=== PATIENT | male | born 1980 | race Caucasian/White ===

== ENCOUNTER 2019-10-19 17:47 | Emergency (ER) | payer OTHER, SELFPAY ==
--- NOTE | ~2019-10-19 | XR_ITS ---
XR foot RT min 3V 10/19/2019 19:10 INDICATION: Right foot pain. No known injury. PROCEDURE: 4 views right foot COMPARISON: 01/19/2007 FINDINGS: Fracture, dislocation or subluxation is not identified. Lisfranc joint intact. There is mil d osteoarthritis of the first MTP joint. There is hallux valgus. The soft tissues appear within lars l limits. No foreign bodies are identified. IMPRESSION: 1: NO ACUTE BONE OR JOINT ABNORMALITY IDENTIFIED. Reviewed, dictated and finalized at location A. [employer]
[2019-10-19 18:12] VITALS: BP 172/95; PULSE 82; RESP 20; TEMP 36.9; O2SAT 87
[2019-10-19] MEDS: KETOROLAC (*BKC) 60 MG/2 ML VIAL IM (19:13)
--- NOTE | 2019-10-19 19:55 | ED.GENADULT ---
HPI - General Adult General Chief complaint: Extremity Problem,Nontraumatic Stated complaint: r foot pain Source: patient Mode of arrival: ambulatory Limitations: no limitations History of Present Illness HPI narrative: Patient presents with a right foot foot pain on the plantar surface lateral without tenderness with palpation with no known injury there is no redness no swelling, with no leg swelling. Has tried [id number] medication with minimal relief, there is no fever no injury to his right foot. Onset (ago): day(s) Location: right and lower extremity Severity: moderate Severity scale (1-10): 6 Quality: dull and constant Pain Consistency: constant Relieving factors: none Exacerbating factors: movement Associated symptoms: denies other symptoms Related Data Home Medications Medication Instructions Recorded Confirmed glimepiride 2 mg PO DAILY 10/19/19 10/19/19 Allergies Allergy/AdvReac Type Severity Reaction Status Date / Time No Known Allergies Allergy Unverified 06/18/17 11:08 Review of Systems Review of Systems: All systems reviewed & are unremarkable except as noted in HPI and below PMFSH Past Medical History Medical History Diabetes mellitus Social History Social History Gender identity (if verbalized by the patient): Male Exam Const: General: no acute distress and alert Orientation/consciousness: patient oriented x3 HENMT: Head: normal to inspection Eyes: Conjunctivae: conjunctivae normal Pupils: Equal, round and reactive pupils present Neck: Neck: normal visual inspection and no lymphadenopathy Chest: Chest palpation & inspection: normal inspection of the chest Resp: Effort & Inspection: normal respiratory effort GI: GI Palp: Yes Soft to palpation : Testes: Testes normal Skin: General skin exam: normal color Rashes: no rashes Extrem: General: no pedal edema Other: right plantar tenderness with palpation Psych: Mental Status: mental status grossly normal Course Vital Signs Vital signs: Vital Signs Temperature 36.9 C 10/19/19 18:12 Pulse Rate 82 10/19/19 18:12 Respiratory Rate 20 10/19/19 18:12 Blood Pressure 172/95 H 10/19/19 18:12 Pulse Oximetry 87 L 10/19/19 18:12 Temperature 36.9 C 10/19/19 18:12 Pulse Rate 82 10/19/19 18:12 Respiratory Rate 20 10/19/19 18:12 Blood Pressure 172/95 H 10/19/19 18:12 Pulse Oximetry 87 L 10/19/19 18:12 Medical Decision Making Vital Signs Vital Signs: Vital Signs Temperature 36.9 C 10/19/19 18:12 Pulse Rate 82 10/19/19 18:12 Respiratory Rate 20 10/19/19 18:12 Blood Pressure 172/95 H 10/19/19 18:12 Pulse Oximetry 87 L 10/19/19 18:12 Temperature 36.9 C 10/19/19 18:12 Pulse Rate 82 10/19/19 18:12 Respiratory Rate 20 10/19/19 18:12 Blood Pressure 172/95 H 10/19/19 18:12 Pulse Oximetry 87 L 10/19/19 18:12 Critical Care Time Critical Care Time Critical Care Time: No Discharge Plan Discharge Clinical Impression: Plantar fasciitis of right foot Patient Disposition: Home, Self-Care Condition: Stable Instructions: Plantar Fasciitis (ED), Antibiotic Form Additional Instructions: take medicine as prescribed and follow-up with primary care physician for further evaluation and treatment. Prescriptions: New naproxen 500 mg tablet 500 mg PO BID Qty: 14 RF: 0 No Action glimepiride 2 mg tablet 2 mg PO DAILY RF: 0 Follow-up/Referrals: UNKNOWN,DOCTOR [Primary Care Provider] -
[2019-10-19 20:13] VITALS: BP 149/96; PULSE 76; RESP 20; O2SAT 97
== END 2019-10-19 20:13 | disposition home or self-care (01) ==
PROVIDERS: Emergency Provider Emergency Medicine
DX: M72.2 Plantar fascial fibromatosis (principal)
CPT/HCPCS: 73630; 96372; 99283; J1885

== ENCOUNTER 2019-11-17 01:34 | Emergency (ER) | payer SELFPAY ==
--- NOTE | ~2019-11-17 | XR_ITS ---
EXAMINATION: XR ankle LT 2V EXAM DATE: 11/17/2019 02:09 INDICATION: No known recent injury provided at this time. Pain of the left ankle laterally. TECHNIQUE: Frontal and lateral projections of the left ankle. There is no prior study for compariso n. FINDINGS: There are no acute left ankle fractures or dislocations identified. There is no subcutaneo us gas. The soft tissue is unremarkable. There are no radiopaque foreign bodies. Small spurring a nterior aspect of distal tibia. IMPRESSION: No acute osseous findings. Reviewed, dictated and finalized at location A. IMPRESSION: No acute osseous findings.
[2019-11-17 01:35] VITALS: BP 168/95; PULSE 89; RESP 18; TEMP 36.6; O2SAT 97
--- NOTE | 2019-11-17 01:52 | ED.LOWEXIN ---
HPI - Extremity Injury (Lower) General Chief Complaint: Extremity Injury, Lower Stated Complaint: Left Ankle Injury Source: patient Mode of arrival: ambulatory Limitations: no limitations History of Present Illness HPI Narrative: This is a 39-year-old male presents with left ankle pain lateral aspect of his left ankle with some tenderness with palpation has decreased range of motion secondary to pain and swelling, twisted his ankle approximately 2 days ago, has been trying [id number] medication with a moderate relief initially but overnight has become worse and medication not helping as much. complaint: ankle injury Onset (ago): day(s) Injury: Left: ankle Type of Injury: inversion Place: home Severity: moderate Severity scale (1-10): 8 Relieving factors: NSAID and cold therapy Exacerbating factors: movement and palpation Context: walking Associated symptoms: swelling and able to partially bear weight Other symptoms: none Related Data Home Medications Medication Instructions Recorded Confirmed glimepiride 2 mg PO DAILY 10/19/19 11/17/19 Allergies Allergy/AdvReac Type Severity Reaction Status Date / Time No Known Allergies Allergy Verified 11/17/19 01:46 Review of Systems Review of Systems: All systems reviewed & are unremarkable except as noted in HPI and [facility] Social History Social History Gender identity (if verbalized by the patient): Male Exam Const: General: no acute distress Orientation/consciousness: patient oriented x3 HENMT: Head: normal to inspection Eyes: Pupils: Equal, round and reactive pupils present Neck: Neck: normal visual inspection Chest: Chest palpation & inspection: normal inspection of the chest Resp: Effort & Inspection: normal respiratory effort Cardio: Rate: regular rate Rhythm: regular rhythm GI: GI Palp: Yes Soft to palpation : Testes: Testes normal Skin: General skin exam: normal color Rashes: no rashes Neuro: General: patient oriented x3 and moves all extremities Extrem: General: edema ( Swelling and tenderness lateral malleolus of left ankle) Psych: Mental Status: mental status grossly normal Affect: normal affect Course Vital Signs Vital signs: Vital Signs Temperature 36.6 C 11/17/19 01:35 Pulse Rate 89 11/17/19 01:35 Respiratory Rate 18 11/17/19 01:35 Blood Pressure 168/95 H 11/17/19 01:35 Pulse Oximetry 97 11/17/19 01:35 Temperature 36.6 C 11/17/19 01:35 Pulse Rate 89 11/17/19 01:35 Respiratory Rate 18 11/17/19 01:35 Blood Pressure 168/95 H 11/17/19 01:35 Pulse Oximetry 97 11/17/19 01:35 Critical Care Time Critical Care Time Critical Care Time: No Discharge Plan Discharge Clinical Impression: High ankle sprain Qualifiers: Encounter type: initial encounter Laterality: left Qualified Code(s): S93.432A - Sprain of tibiofibular ligament of left ankle, initial encounter Patient Disposition: Home, Self-Care Condition: Stable Instructions: Antibiotic Form, Ankle Sprain (ED) Additional Instructions: take medicine as prescribed and follow-up with primary care physician within 1 week for further evaluation and treatment. Prescriptions: New tramadol [Ultram] 50 mg tablet 50 mg PO Q6H PRN (Reason: pain) Qty: 20 RF: 0 No Action glimepiride 2 mg tablet 2 mg PO DAILY RF: 0 Follow-up/Referrals: UNKNOWN,DOCTOR [Primary Care Provider] - Stand Alone Forms: Work/School Release IP Time of Disposition: 02:30
[2019-11-17] MEDS: KETOROLAC (*BKC) 60 MG/2 ML VIAL IM (01:55)
[2019-11-17 02:32] VITALS: BP 139/85; PULSE 85; RESP 20; O2SAT 99
== END 2019-11-17 02:37 | disposition home or self-care (01) ==
PROVIDERS: Emergency Provider Emergency Medicine
DX: S93.432A Sprain of tibiofibular ligament of left ankle, initial encounter (principal); X50.1XXA Overexertion from prolonged static or awkward postures, initial encounter
CPT/HCPCS: 73600; 96372; 99283; J1885; L4350

== ENCOUNTER 2020-03-24 12:12 | Emergency (ER) | payer OTHER, SELFPAY ==
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
[2020-03-24 12:12] VITALS: BP 140/81; PULSE 79; RESP 20; TEMP 36.9; O2SAT 96
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
[2020-03-24 13:27] LABS: Glucose Point of Care 125 (65-105)
[2020-03-24 14:15] VITALS: RESP 15
== END 2020-03-24 14:25 | disposition home or self-care (01) ==
PROVIDERS: Emergency Provider Emergency Medicine
DX: S32.010A Wedge compression fracture of first lumbar vertebra, initial encounter for closed fracture (principal); V58.5XXA Driver of pick-up truck or van injured in noncollision transport accident in traffic accident, initial encounter
CPT/HCPCS: 72128; 72131; 99284; A9270

== ENCOUNTER 2020-07-02 16:01 | Outpatient (RCR) | payer SELFPAY | END 2020-07-02 23:59 | disposition home or self-care (01) | LOC: CHSPT 16:01 | DX: S32.018A Other fracture of first lumbar vertebra, initial encounter for closed fracture (principal) | CPT/HCPCS: 97014; 97110; 97161; G0283 ==

== ENCOUNTER 2021-08-06 11:50 | Emergency (ER) | payer BC, SELFPAY ==
[2021-08-06 12:09] VITALS: BP 138/95; PULSE 78; RESP 18; TEMP 36.8; O2SAT 96
--- NOTE | 2021-08-06 12:12 | ED.GENADULT ---
HPI - General Adult General Chief complaint: Extremity Problem,Nontraumatic Stated complaint: possible gout on lt foot Source: patient Mode of arrival: ambulatory Limitations: no limitations History of Present Illness HPI narrative: Dioni is a 41M with a PMH of gout, DMII and obesity that presented to the ED with pain in the left great toe. It started a few days ago and is now exquisite. The slightest stimulus causes pain and it is warm to the touch. It feels like previous gout flares. He denies any spreading erythema, fevers, chills, N/V, chest pain and SOB. Related Data Home Medications Medication Instructions Recorded Confirmed glimepiride 2 mg PO DAILY 10/19/19 03/24/20 ergocalciferol (vitamin D2) 1 unit PO WEEKLY 03/24/20 03/24/20 escitalopram oxalate 20 mg PO DAILY 03/24/20 03/24/20 hydroxyzine HCl 25 mg PO DAILY 03/24/20 03/24/20 trazodone 50 mg PO HS 03/24/20 03/24/20 Allergies Allergy/AdvReac Type Severity Reaction Status Date / Time No Known Allergies Allergy Verified 08/06/21 12:08 Review of Systems Constitutional: Constitutional: Reports no additional constitutional complaints Eyes: Eyes: Reports no additional eye complaints ENT: Reports system reviewed and no additional complaints, except as documented Cardiovascular: Cardiovascular: Reports no additional cardiovascular complaints Respiratory: Respiratory: Reports no additional respiratory complaints Gastrointestinal: Gastrointestinal: Reports no additional gastrointestinal complaints Genitourinary: Genitourinary: Reports no additional male genitourinary complaints Musculoskeletal: Musculoskeletal: Reports as per HPI Integumentary/Breasts: Skin/Breast: Reports system reviewed and no additional complaints, except as docu Neurologic: Reports system reviewed and no additional complaints, except as documented Psychiatric: Psychiatric: Reports no additional psychiatric complaints Endocrine: Endocrine: Reports no additional endocrine complaints Hematologic/Lymphatic: Hematologic/Lymphatic: Reports no additional hematologic/lymphatic complaints Allergic/Immunologic: Allergic/Immunologic: Reports no additional allergic/immunologic complaints [facility] Past Medical History Medical History Diabetes mellitus Social History Social History Smoking status: Never smoker Alcohol intake: never Substance use: current Substance use type: marijuana Gender identity (if verbalized by the patient): Male Exam Const: General: no acute distress and alert Orientation/consciousness: patient oriented x3 Limitations: No altered mental status HENMT: Head: normal to inspection Other: normocephalic, atrauamtic Eyes: Conjunctivae: conjunctivae normal Pupils: Equal, round and reactive pupils present Neck: Neck: normal visual inspection Chest: Chest palpation & inspection: normal inspection of the chest Resp: Effort & Inspection: normal respiratory effort Cardio: Rate: regular rate Skin: General skin exam: normal color Rashes: no rashes Neuro: General: patient oriented x3 and moves all extremities Extrem: Other: First MCP of the left great toe was warm and very TTP. He was able to move the toe and had good capillary refill Psych: Mental Status: mental status grossly normal Course Course Emergency Course: Given a shot of toradol and Lowber pill for the pain Vital Signs Vital signs: Vital Signs Temperature 98.2 F 08/06/21 12:09 Pulse Rate 78 08/06/21 12:09 Respiratory Rate 18 08/06/21 12:09 Blood Pressure 138/95 H 08/06/21 12:09 Pulse Oximetry 96 08/06/21 12:09 Temperature 98.2 F 08/06/21 12:09 Pulse Rate 78 08/06/21 12:09 Respiratory Rate 18 08/06/21 12:09 Blood Pressure 138/95 H 08/06/21 12:09 Pulse Oximetry 96 08/06/21 12:09 Medical Decision Making Vital Signs Vital Signs: Vital
[2021-08-06] MEDS: HYDROcodone/acetaminophen (*CRX) 5-325 MG TABLET 1 TAB PO (12:27)
[2021-08-06] MEDS: KETOROLAC 30 MG/ML VIAL (*BKC) IM (12:28)
== END 2021-08-06 12:38 | disposition home or self-care (01) ==
PROVIDERS: Emergency Provider Family Medicine
DX: M10.9 Gout, unspecified (principal)
CPT/HCPCS: 96372; 99283; A9270; J1885

== ENCOUNTER 2022-01-18 12:07 | Emergency (ER) | payer BC, SELFPAY ==
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
[2022-01-18 12:10] VITALS: BP 141/81; PULSE 75; RESP 20; TEMP 36.3; O2SAT 97
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
[2022-01-18 13:18] VITALS: BP 136/80; PULSE 79; RESP 18; TEMP 37; O2SAT 98
== END 2022-01-18 13:21 | disposition home or self-care (01) ==
PROVIDERS: Emergency Provider Emergency Medicine; PCP Nurse Practitioner Family
DX: S93.402A Sprain of unspecified ligament of left ankle, initial encounter (principal); E11.9 Type 2 diabetes mellitus without complications; F17.210 Nicotine dependence, cigarettes, uncomplicated
CPT/HCPCS: 73610; 73630; 99283

== ENCOUNTER 2022-04-22 19:09 | Emergency (ER) | payer BC, SELFPAY ==
[2022-04-22 19:21] VITALS: BP 152/78; PULSE 70; RESP 20; TEMP 36.4; O2SAT 94
--- NOTE | 2022-04-22 19:41 | ED.DENTAL ---
HPI - Dental/Oral General Chief complaint: Dental/Oral Stated complaint: abcess tooth/can't get into dentist until Wednesday Time Seen by Provider: 04/22/22 19:13 Source: patient and RN notes reviewed Mode of arrival: ambulatory Limitations: no limitations History of Present Illness Complaint: tooth pain (right upper molar toothache x 3 days. ) Location: Tooth # (3) Onset (ago): day(s) (3) Duration: constant Severity: moderate Severity scale (1-10): 6 Relieving factors: NSAIDs Exacerbating factors: chewing Context: history of dental caries Associated symptoms: other (tooth ache) Related Data Home Medications Medication Instructions Recorded Confirmed glimepiride 2 mg tablet 2 mg PO DAILY 10/19/19 04/22/22 escitalopram oxalate 20 mg tablet 20 mg PO DAILY 03/24/20 04/22/22 semaglutide 0.25 mg or 0.5 mg (2 0.25 mg subcut DAILY 04/22/22 04/22/22 mg/1.5 mL) subcutaneous pen injector (Ozempic) Allergies Allergy/AdvReac Type Severity Reaction Status Date / Time No Known Allergies Allergy Verified 04/22/22 19:24 Review of Systems Review of Systems: All systems reviewed & are unremarkable except as noted in HPI and below Constitutional: Constitutional: Reports no additional constitutional complaints Eyes: Eyes: Reports no additional eye complaints ENT: Reports system reviewed and no additional complaints, except as documented Comments: toothache Cardiovascular: Cardiovascular: Reports no additional cardiovascular complaints Respiratory: Respiratory: Reports no additional respiratory complaints Gastrointestinal: Gastrointestinal: Reports no additional gastrointestinal complaints Musculoskeletal: Musculoskeletal: Reports no additional musculoskeletal complaints Integumentary/Breasts: Skin/Breast: Reports system reviewed and no additional complaints, except as docu Neurologic: Reports system reviewed and no additional complaints, except as documented Psychiatric: Psychiatric: Reports no additional psychiatric complaints Endocrine: Endocrine: Reports no additional endocrine complaints Hematologic/Lymphatic: Hematologic/Lymphatic: Reports no additional hematologic/lymphatic complaints Allergic/Immunologic: Allergic/Immunologic: Reports no additional allergic/immunologic complaints [facility] Past Medical History Medical History Diabetes mellitus Toothache Social History Social History Smoking packs per day: 1 Smoking cigarettes per day: 20.0 Smoking status: Current every day smoker Alcohol intake: never Substance use: current Substance use type: marijuana Gender identity (if verbalized by the patient): Male Exam Const: General: healthy appearing and no acute distress Nutritional Appearance: well nourished Orientation/consciousness: patient oriented x3 Limitations: no limitations HENMT: Head: normal to inspection Ears: external ears normal, TM's normal bilaterally and EAC's normal General nose exam: Normal external nose present and Normal nares present Face and sinus: normal facial exam and sinuses nontender Mouth: Yes Normal oral and palatal mucosa present and Yes moist mucous membranes Teeth and gingiva: abnormal dentition and abnormal tooth and associated gingiva (multiple carious teeth) Throat: posterior oropharynx normal Eyes: Conjunctivae: conjunctivae normal Pupils: Equal, round and reactive pupils present EOM: EOMs intact bilaterally Neck: Neck: normal visual inspection, no lymphadenopathy and no meningeal signs Chest: Chest palpation & inspection: normal inspection of the chest Resp: Effort & Inspection: normal respiratory effort Auscultation: clear to auscultation bilaterally Cardio: Rate: regular rate Rhythm: regular rhythm GI: GI Palp: Yes Soft to palpation and No Tenderness to palpation present (GI) Auscultation: normal bowel sounds : General
[2022-04-22] MEDS: traMADol HCL (*CRX) 50 MG TABLET PO (19:47)
[2022-04-22] MEDS: cefTRIAXone 1 GM, LIDOCAINE HCL 1% LOCAL INJ 2.1 ML IM (19:48)
[2022-04-22 20:06] VITALS: BP 150/90; PULSE 65; RESP 18; O2SAT 94
== END 2022-04-22 20:08 | disposition home or self-care (01) ==
PROVIDERS: Emergency Provider Emergency Medicine; PCP Nurse Practitioner Family
DX: K08.89 Other specified disorders of teeth and supporting structures (principal); K02.9 Dental caries, unspecified
CPT/HCPCS: 96372; 99283; A9270; J0696

== ENCOUNTER 2023-04-09 20:20 | Emergency (ER) | payer BC, SELFPAY ==
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
[2023-04-09 20:28] VITALS: BP 131/81; PULSE 77; RESP 20; TEMP 37; O2SAT 96
[2023-04-09] MEDS: HYDROmorphone HCL INJ (*CRX) 2 MG/ML VIAL 1 MG IM (20:55)
[2023-04-09 21:14] VITALS: BP 109/81; PULSE 74; RESP 18; O2SAT 97
== END 2023-04-09 21:16 | disposition home or self-care (01) ==
PROVIDERS: Emergency Provider Emergency Medicine
DX: M54.50 Low back pain, unspecified (principal); E11.9 Type 2 diabetes mellitus without complications; F17.210 Nicotine dependence, cigarettes, uncomplicated; Z79.899 Other long term (current) drug therapy
CPT/HCPCS: 96372; 99283; J1170

== ENCOUNTER 2024-10-30 20:13 | Emergency (ER) | payer BC, SELFPAY ==
[2024-10-30] VITALS (12 sets, daily range): BP systolic 121–132; BP diastolic 75–83; PULSE 72–88; RESP 16–27; TEMP 36.6–37; O2SAT 92–96
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
[2024-10-30] MEDS: ASPIRIN 81 MG CHEWABLE TABLET 324 MG PO (20:37)
[2024-10-30 20:48] LABS: Basophils Absolute Auto 0.05 K/mm3 (0.00-0.10); Basophils Percent Auto 0.4 % (0.0-1.0); Eosinophils Absolute Auto 0.14 K/mm3 (0.02-0.50); Eosinophils Percent Auto 1.3 % (1.0-6.0); Hematocrit 43.4 % (40.0-54.0); Hemoglobin 14.7 g/dL (14.0-18.0); Immature Granulocyte Absolute 0.03 K/mm3 (0.00-0.00); Immature Granulocyte Percent A 0.3 % (0.0-0.0); Lymphocytes Percent Auto 21.5 % (18.0-42.0); Mean Corpuscular HGB Conc 33.9 g/dL (32-36); Mean Corpuscular Hemoglobin 29.6 pg (27.0-31.0); Mean Corpuscular Volume 87.5 fL (78.0-102.0); Mean Platelet Volume 10.4 fl (8.7-11.0); Monocytes Absolute Auto 0.59 K/mm3 (0.10-0.90); Monocytes Percent Auto 5.3 % (2.0-11.0); Neutrophils Absolute Auto 7.96 K/mm3 (1.70-7.20); Neutrophils Percent Auto 71.2 % (50.0-70.0); Platelet Count Result 260 K/mm3 (150-420); Red Blood Count 4.96 M/mm3 (4.70-6.10); Red Cell Distribution Width 13.2 % (11.6-14.4); White Blood Count 11.2 K/mm3 (4.8-10.8)
[2024-10-30 21:02] LABS: Prothrombin Time 11.1 Seconds (9.50-12.1)
[2024-10-30 21:13] LABS: Alanine Aminotransferase 20 U/L (16-63); Albumin Level 3.5 g/dL (3.4-5.0); Alkaline Phosphatase 78 U/L (46-116); Anion Gap 11 mmol/L (4-12); Aspartate Amino Transferase 12 U/L (15-37); Bilirubin,Total 0.6 mg/dL (0.00-1.00); Blood Urea Nitrogen 9 mg/dL (7-18); Carbon Dioxide 30 mmol/L (21-32); Chloride 102 mmol/L (98-108); Estimated CRCL calculation 110 ml/min; Estimated Glomerular Filt Rate > 60; Glucose 134 mg/dL (70-99); Lipase 30 U/L (16-77); NT Pro B Type Natriuretic Pept 116 pg/mL (0-125); Osmolality Calculated 296 mOsm/kg (285-295); Potassium 3.3 mmol/L (3.5-5.1); Sodium 143 mmol/L (136-145); Total Protein 6.9 g/dL (6.4-8.2); Troponin I 7.4 ng/L (0.00-60.4)
== END 2024-10-30 21:33 | disposition home or self-care (01) ==
PROVIDERS: Emergency Provider Family Medicine; PCP Nurse Practitioner Family
DX: R07.9 Chest pain, unspecified (principal); E11.9 Type 2 diabetes mellitus without complications; F17.210 Nicotine dependence, cigarettes, uncomplicated
CPT/HCPCS: 36415; 71045; 80053; 83690; 83880; 84484; 85025; 85610; 93005; 99284; A9270

== ENCOUNTER 2025-02-01 15:06 | Emergency (ER) | payer BC, SELFPAY ==
--- NOTE | ~2025-02-01 | XR_ITS ---
XR elbow RT min 3V, XR forearm RT 2V 02/01/2025 15:55 (accession [id number]), 02/01/2025 15:54 (accession [id number]) Indication: Right elbow and forearm injury Procedure: 3 views right elbow and 2 views left forearm Comparison: 01/13/2015 Findings: No acute fracture or traumatic malalignment. No joint effusion. There is soft tissue lacera tion dorsal to the proximal ulna with radiodensities in the soft tissues, possibly foreign bodies. Impression: 1: Soft tissue laceration overlying the proximal ulna with possible associated foreign bodies. 2: No fracture. Reviewed, dictated and finalized at location A. Impression: 1: Soft tissue laceration overlying the proximal ulna with possible associated foreign bodies. 2: No fracture. Impression: 1: Soft tissue laceration overlying the proximal ulna with possible associated foreign bodies. 2: No fracture.
[2025-02-01 15:06] VITALS: BP 134/106; PULSE 70; RESP 16; TEMP 36.3; O2SAT 96
--- OUTSIDE RECORDS SUMMARY | 2025-02-01 15:41 | XMS_ITS | Clinical Summary ---
Author Organization [facility] Address [address] [place] [id number] Care Team Providers Care Settlement Agent Name Role Phone Aundrea Quinones NP Primary Care Provider Allergies No known active allergies Medications HYDROcodone-cisco taminophen (NORCO) 5-325 mg per tabletIndicatio ns:Pain Take 1-2 tablets by mouth every 4 (four) hours as needed for pain (1 tablet for mild to moderate pain or 2 tablets for severe pain) Do not exceed 8 tablets/day. 12 tablet 0 Active Additional Information Patient not taking.Reported on 04/08/2022 escitalopram (LEXAPRO) 20 mg tablet Take 20 mg by mouth daily 0 Active traZODone (DESYREL) 50 mg tablet TAKE 1 TABLET BY MOUTH EVERYDAY AT BEDTIME 0 Active ergocalciferol (VITAMIN D) 50,000 unit capsule TAKE 1 CAPSULE BY MOUTH ONE TIME PER WEEK 0 Active glimepiride (AMARYL) 2 mg tablet Take 2 mg by mouth daily 0 Active Active Problems Problem Noted Date Diagnosed Date Other chest pain 04/08/2022 Closed fracture of first lumbar vertebra 020 Medical History Medical History Date Comments Diabetes mellitus (HCC) Family History Medical History Relation Name Comments No Known Problems Brother No Known Problems Daughter Heart disease Father Heart disease Maternal Grandmother Heart disease Mother Heart disease Other No Known Problems Sister No Known Problems Son Relation Name Status Comments Brother Daughter Father Maternal Grandmother Mother Other Sister Son Social History Tobacco Use Types Packs/Day Years Used Date Smoking Tobacco: Every Day Smokeless Tobacco: Never Personal Safety Answer Date Recorded Getting School Help Needed Not on file 10/27 Sex and Gender Information Value Date Recorded Sex Assigned at Not on file Legal Sex Male 1:09 PM [employer] Gender Identity Not on file Sexual Orientation Not on file Obstetrics History Last Filed Vital Signs Vital Sign Reading Time Taken Comments Blood Pressure 122/86 04/08/2022 1:27 PM CDT Pulse 83 04/08/2022 1:27 PM CDT Temperature 36.6 C (97.8 F) 06/12/2020 1:52 PM CDT Respiratory Rate 18 03/26/2020 7:56 PM CDT Oxygen Saturation 95% 04/08/2022 1:27 PM CDT Inhaled Oxygen Concentration - - Weight 175.4 kg (386 lb 9.2 oz) 04/08/2022 1:27 PM CDT Height 177.8 cm (5' 10) 04/08/2022 1:27 PM CDT Body Mass Index 55.47 04/08/2022 1:27 PM CDT Plan of Treatment Health Maintenance Due Date Last Done Comments Depression Screening 1982 Hepatitis C Screening 1982 Varicella Vaccines (1 of 2 - 13+ 2-dose series) 1995 Hepatitis B Screening 02/10/2000 Regular Well Visit/Exam 18-64 02/10/2000 Pneumococcal vaccine <65 (2 of 2 - PCV) 06/12/2021 06/12/2020, 05/14/2017 Influenza Vaccine (Season Ended) 2025 06/12/2020, 07/05/2019, 05/30/2018, Additional history exists DTaP/Tdap/Td Vaccine (8 - Td or Tdap) 07/05/2029 07/05/2019, 01/13/2015, 03/21/1996, Additional history exists HPV Vaccines Aged Out No longer eligi ble based on patient's age to complete this topic Insurance [facility] [employer] [employer] [place] [employer] [place] Care Teams Settlement Agent Relationship Specialty [place] [address] [place] [phone] PCP - General Family Medicine 03/26/20
--- OUTSIDE RECORDS SUMMARY | 2025-02-01 15:41 | XMS_ITS | Clinical Summary ---
Author Organization [facility] - [facility] Address [address] [place] [address] Phone Care Team Providers Care Advertising Sales Associate Name Role Phone Rajwinder Prescott MD Unavailable Karen Toro MVA REACTOR OPERATOR, PATHOLOGY SECRETARY Primary Care Provider Allergies No known active allergies Medications Continuous Blood Gluc Sensor (Dexcom G6 Sensor) MiscIndications :Type 2 diabetes mellitus with diabetic polyneuropathy, without long-term current use of insulin (HCC),Class 3 severe obesity due to excess calories with serious comorbidity and body mass index (BMI) of 50.0 to 59.9 in adult Change sensor every 10 days. 3 Each 3 2 Active Additional Information Patient not taking.Reported on 09/29/2024 citalopram (CeleXA) 20 MG Tablet 2 Active ibuprofen (MOTRIN) 800 MG Tablet Take 800 mg by mouth 3 times daily. 2 Active escitalopram (LEXAPRO) 20 MG Tablet TAKE 1 TABLET BY MOUTH ONCE DAILY, NEED TO SCHEDULE AND KEEP APPOINTMENT WITH PCP FOR REFILLS 3 Active Glucose Blood (OneTouch Ultra) Strip Test blood glucose daily. 90 Each 1 3 Active Additional Information Patient not taking.Reported on 09/29/2024 traZODone (DESYREL) 50 MG Tablet TAKE 1 TABLET BY MOUTH ONCE DAILY AT BEDTIME 3 Active busPIRone (BUSPAR) 15 MG Tablet Take 15 mg by mouth 2 times daily. 3 Active DULoxetine (CYMBALTA) [address] Particles Take 20 mg by mouth nightly. Active Tirzepatide (Mounjaro) 7.5 MG/0.5ML Solution Auto-injector 7.5 mg by Subcutaneous route once a week. 6 mL 5 Active Active Problems Problem Noted Date Diagnosed Date Type 2 diabetes mellitus wit hout complication, without long-term current use of insulin 09/15/2021 CHE (obstructive sleep apnea) 04/28/2021 Morbid obesity 04/28/2021 Anxiety 04/28/2021 Pulmonary HTN 04/28/2021 Tobacco use disorder 04/28/2021 Encounters Date Type Department Care Team Description 12/29/2024 [facility] [address] [place] [address] Rajwinder Prescott MD Medication Refill 12/03/2024 [facility] [place] [address] Rajwinder Prescott MD Medication Refill from Last 3 Months Immunizations Immunization Administration Dates Next Due DTP Vaccine 03/06/1987, 3,1982,1981,1982 Influenza Vaccine, Quadrivalent, PF 05/30/2018 Influenza, Injectable, Quadrivalent 06/12/2020,1 09/04/2018,05/14/2017 MMR Vaccine 04/05/1992,07/08/1983 OPV 03/06/1987, 3,1982,1981 Pneumococcal Vaccine Adult - 23 Valent 06/12/2020,05/14/2017 TD VACCINE 03/21/1996 TDAP Vaccine 07/05/2019,01/13/2015 Social History Tobacco Use Types Packs/Day Years Used Date Smoking Tobacco: Every Day Cigarettes Smokeless Tobacco: Never Tobacco Cessation:Ready to Q uit: Not Asked; Counseling Given: Not Answered Comments:2 packs a day Alcohol Use Standard Drinks/Week Comments Yes 0 (1 standard drink = 0.6 oz pur e alcohol) occasional social drinker Sexually Active Control Partners Comments Yes None Sex and Gender Information Value Date Recorded Sex Assigned at Not on file Legal Sex Male 7:22 PM CDT Gender Identity Not on file Sexual Orientation Not on file Last Filed Vital Signs Vital Sign Reading Time Taken Comments Blood Pressure 120/63 09/29/2024 10:09 AM ELECTRIC POWER SUPERINTENDENT Pulse 78 09/29/2024 10:09 AM ELECTRIC POWER SUPERINTENDENT Temperature 36.3 C (97.4 F) 09/29/2024 10:09 AM ELECTRIC POWER SUPERINTENDENT Respiratory Rate 22 09/29/2024 10:09 AM ELECTRIC POWER SUPERINTENDENT Oxygen Saturation 97% 09/29/2024 10:09 AM ELECTRIC POWER SUPERINTENDENT Inhaled Oxygen Concentration - - Weight 129.3 kg (285 lb) 09/29/2024 10:09 AM ELECTRIC POWER SUPERINTENDENT Height 177.8 cm (5' 10) 12/08/2023 1:58 PM CDT Body Mass Index 40.89 12/08/2023 1:58 PM CDT Plan of Treatment Upcoming Encounters Date Type Department Care Team (Late st Contact Info) Description 03/16/2025 10:30 AM CDT Office Visit [facility] [place] [address] [place] [address] Rajwinder Prescott MD [address] [address] Health Maintenance Due Date Last Done Comments Diabetes: Eye Exam 1982 Hepatitis C Virus (HCV) Screening 1982 Hepatitis B Immunization (1 of 3 - 19+ 3-dose series) 2001 Pneumococcal Immunization Combined (2 of 2 - PCV) 06/12/2021 06/12/2020, 05/14/2017 SARS-COV-2 Immunization ( - season) 2024 Diabetes: Hemoglobin A1c 03/29/2025 025, 06/23/2024, 12/08/2023, Additional history exists Influenza Immunization (Season Ended) 2025 06/12/2020, 07/05/2019, 05/30/2018, Additional history exists Diabetes: Nephropathy Screening 06/23/2025 06/23/2024, 12/08/2023, 12/08/2023, Additional history exists Diabetes: Foot Exam 09/29/2025 09/29/2024, 3 DTaP/Tdap/Td Immunization (8 - Td or Tdap) 07/05/2029 07/05/2019, 01/13/2015, 03/21/1996, Additional history exists Respiratory Syncytial Virus (RSV) Immunization (Adult) (1 - 1-dose 75+ series) 2057 Human Papillomavirus (HPV) Immunization Aged Out No longer eligible based on patient's age to complete this topic Meningococcal Immunization (ACWY) Aged Out No longer eligible based on patient's age to complete this topic Rotavirus Immunization Aged Out No lo nger eligible based on patient's age to complete this topic Procedures Procedure Name Priority Date/Time Associated Diagnosis Comments POCT GLYCOSYLATED HEMOGLOBIN Routine 09/29/2024 10:16 AM ELECTRIC POWER SUPERINTENDENT Type 2 diabetes mellitus with diabetic polyneuropathy, without long-term current use of insulin (HCC) CMP (COMPREHENSIVE METABOLIC PANEL) Routine 06/23/2024 9:34 AM CDT Type 2 diabetes mellitus with diabetic polyneuropathy, without long-term current use of insulin (HCC) from Last 3 Months or Most Recently Relevant to Health Maintenance Results * POCT GLYCOSYLATED HEMOGLOBIN (09/29/2024 10:16 AM ELECTRIC POWER SUPERINTENDENT) HGB-A1C 5.3 4 - 6 % Blood 09/29/2024 10:1 6 AM ELECTRIC POWER SUPERINTENDENT Rajwinder Prescott MD POINT OF CARE TESTING (MANUAL) F inal Result * (ABNORMAL) CMP (COMPREHENSIVE METABOLIC PANEL) (06/23/2024 9:34 AM CDT) SODIUM 141 136 - 145 mmol/L 06/23/2024 11:28 AM CDT [facility] POTASSIUM 4.3 3.5 - 5.1 mmol/L 06/23/2024 11:28 AM CDT [facility] CHLORIDE 106 98 - 107 mmol/L 06/23/2024 11:28 AM CDT [facility] CO2, VENOUS 29 22 - 30 mmol/L 06/23/2024 11:28 AM CDT [facility] ANION GAP 10.3 <18.0 mmol/L 06/23/2024 11:28 AM CDT [facility] GLUCOSE 153(H) 70 - 99 mg/dL 06/23/2024 11:28 AM CDT [facility] BUN 13 9 - 21 mg/dL 06/23/2024 11:28 AM CDT [facility] CREATININE, BLOOD 0.91 0.70 - 1.30 mg/dL 06/23/2024 11:28 AM CDT [facility] BUN/CREATININE RATIO 14 12 - 20 ratio 06/23/2024 11:28 AM CDT [facility] TOTAL PROTEIN 6.6 6.3 - 8.2 g/dL 06/23/2024 11:28 AM CDT [facility] ALBUMIN 3.8 3.5 - 5.0 g/dL 06/23/2024 11:28 AM CDT [facility] A/G RATIO 1.4 1.0 - 2.2 06/23/2024 11:28 AM CDT [facility] CALCIUM 9.0 8.7 - 10.5 mg/dL 06/23/2024 11:28 AM CDT [facility] T BILI 0.8 0.2 - 1.2 mg/dL 06/23/2024 11:28 AM CDT [facility] SGOT (AST) 15 5 - 34 U/L 06/23/2024 11:28 AM CDT [facility] SGPT (ALT) 18 0 - 55 U/L 06/23/2024 11:28 AM CDT [facility] ALKALINE PHOSPHATASE 65 40 - 150 U/L 06/23/2024 11:28 AM T [facility] IS THE PATIENT REQUIRED TO BE FASTING? No 06/23/2024 11:28 AM CDT [facility] GFR, ESTIMATED >60 >=60 06/23/2024 11:28 AM CDT [facility] Comment: Creatinine Clearance is the preferred criteria for selecting drug dose adjustments in renally impaired patients. The GFR is provided as additional pertinent clinical information. GFR is reported in mL/min/1.73 sq m. Calculation based on the Chronic Kidney Disease Epidemiology Collaboration (CKD- EPI) equation refit without adjustment for race. GFR, EST. >60 >=60 024 11:28 AM CDT [facility] GFR, EST. NONAFRICAN >60 >=60 06/23/2024 11:28 AM CDT [facility] Blood Venipuncture / Unknown 06/23/2024 9:34 AM CDT 06/23/2024 10:51 AM CDT us Rajwinder Prescott MD CHEMISTRY ORDERABLES Final Resul t [facility] [address] [place] [address] from Last 3 Months or Most Recently Relevant to Health Maintenance Insurance Care Teams Advertising Sales Associate Relationship Specialty Start Date End Date Karen Toro, MVA REACTOR OPERATOR, PATHOLOGY SECRETARY [address], [address] [address] PCP - General Advanced Practice Nurse 09/11/24 Rajwinder Prescott MD [address] [address] Consulting Physician Endocrinology 04/02/22
--- OUTSIDE RECORDS SUMMARY | 2025-02-01 15:41 | XMS_ITS | Referral Summary ---
Author Organization [facility] Address [address] [place] [address] Care Team Providers Care Agriculture Manager Name Role Phone Aundrea Quinones NP Primary Care Provider [phone] Allergies No known active allergies Medications HYDROcodone-cisco [...] Closed fracture of first lumbar vertebra 020 Social History Tobacco Use Types Packs/Day Years Used Date Smoking Tobacco: Every Day Smokeless Tobacco: Never Personal Safety Answer Date Recorded Getting School Help Needed Not on file 10/27 Sex and Gender Information Value Date Recorded Sex Assigned at Not on file Legal Sex Male 1:09 PM DIABETES SPECIALIST Gender Identity Not on file Sexual Orientation [...] 04/08/2022 1:27 PM CDT Plan of Treatment Not on file Insurance [facility] CHOICE PLUS [employer] [place] [facility] Care Teams Agriculture Manager Relationship Specialty Start Date End Date Aundrea Quinones NP [address] [address] PCP - General Family Medicine 03/26/20
--- OUTSIDE RECORDS SUMMARY | 2025-02-01 15:41 | XMS_ITS | Continuity of Care Document ---
Author Organization [facility] Address [address] [place] [address] [address] [place] [address] Phone Care Team Providers Care Drawer Fitter Name Role Phone Amaro OD, [place] Unavailable Unavailable Advance Directives Directive Yes / No Effective Date File Name No Information Encounters Encounter Description Practice Location Reason(s) For Visit Diagnoses Date Provider Providers Copied on Encounter [facility], [address] [place] [address] [address], [place], [place], [id number], [place] tel:[phone] [facility] [place] No Information Feb-0 1-200 5 Amaro OD [place]. [address] [facility] [place] , [address], [place], [address], [place]. tel:[phone] Family History Family Member Type Diagnosis Age At Onset No Information Payers Payer name Insurance type Covered libertarian ID Authorfeli costello(s) [employer] [facility] [id number] Social History Type Description Quantity Date Captured Comments Sex Male Smoking Status No Information Chief Complaint And Reason For Visit No Information Reason For Referral Reason For Referral No Information History Of Present Illness Encounter Date Complaint History Of Prese nt Illness No Information Functional Status Date Functional Assessmen t No Information Instructions Date Instruction Additional Infor mation No Information Assessments Type Assessment Date No Information Patient Care Teams Name Effective Dates (start - stop) Status Members No Information
[2025-02-01] MEDS: TETANUS,DIPHTHERIA,AC PERTUSSIS ADULT 0.5 ML (ADACEL) IM (16:07)
[2025-02-01] MEDS: LIDOCAINE 1% LOCAL INJ 10 ML VIAL INFILTRATE (16:07)
[2025-02-01] MEDS: KETOROLAC (*BKC) 60 MG/2 ML VIAL IM (16:07)
--- OUTSIDE RECORDS SUMMARY | 2025-02-01 16:10 | XMS_ITS | Continuity of Care Document ---
Author Organization [facility] Address [address] [place] [address] [address] [place] [address] Phone Care Team Providers Care Shop Cooper Name Role Phone Amaro OD, [place] Unavailable Unavailable Advance Directives Directive Yes / No Effective Date File Name No Information Encounters Encounter Description Practice Location Reason(s) For Visit Diagnoses Date Provider Providers Copied on Encounter [facility], [address] [place] [address] [address], [place], [place], [id number], [place] tel:[phone] [facility] [place] No Information Feb-0 1-200 5 Amaro OD [place]. [address] [place] , [address], [place], [address], [place]. tel:[phone] Family History Family Member Type Diagnosis Age At Onset No Information Payers Payer name Insurance type Covered libertarian ID Authorfeli costello(s) [employer] [facility] [id number] Social History Type Description Quantity Date Captured [...]
--- OUTSIDE RECORDS SUMMARY | 2025-02-01 16:10 | XMS_ITS | Referral Summary ---
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
--- OUTSIDE RECORDS SUMMARY | 2025-02-01 16:10 | XMS_ITS | Clinical Summary ---
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
--- OUTSIDE RECORDS SUMMARY | 2025-02-01 16:10 | XMS_ITS | Clinical Summary ---
Author Organization [facility] Address [address] [place] [address] Phone Care Team Providers Care Director Engineering Name Role Phone Rajwinder Prescott MD Unavailable Karen Toro PULP GRINDER AND BLENDER, INSULATION PACKER Primary Care Provider Allergies No known active [...] Type Department Care Team Description [facility]/29[facility] [address] [place] [address] Rajwinder Prescott MD Medication Refill 12/03/2024 [facility] [place] [address] Rajwinder Prescott MD Medication Refill from Last [...] Comments Blood Pressure 120/63 09/29/2024 10:09 AM PODIATRIC MEDICINE DOCTOR Pulse 78 09/29/2024 10:09 AM PODIATRIC MEDICINE DOCTOR Temperature 36.3 C (97.4 F) 09/29/2024 10:09 AM PODIATRIC MEDICINE DOCTOR Respiratory Rate 22 09/29/2024 10:09 AM PODIATRIC MEDICINE DOCTOR Oxygen Saturation 97% 09/29/2024 10:09 AM PODIATRIC MEDICINE DOCTOR Inhaled Oxygen Concentration - - Weight 129.3 kg (285 lb) 09/29/2024 10:09 AM PODIATRIC MEDICINE DOCTOR Height 177.8 cm (5' 10) 12/08/2023 1:58 PM CDT Body Mass Index 40.89 12/08/2023 1:58 PM CDT Plan of Treatment Upcoming Encounters Date Type Department Care Team (Late st Contact Info) Description 03/16/2025 10:30 AM CDT [facility] [place] [address] [place] [address] Rajwinder Prescott MD [address] [address] Health Maintenance Due Date Last Done Comments [...] POCT GLYCOSYLATED HEMOGLOBIN Routine 09/29/2024 10:16 AM PODIATRIC MEDICINE DOCTOR Type 2 diabetes mellitus with diabetic polyneuropathy, without long-term current use of insulin (HCC) CMP (COMPREHENSIVE METABOLIC PANEL) Routine 06/23/2024 9:34 AM CDT Type 2 diabetes mellitus with diabetic polyneuropathy, without long-term current use of insulin (HCC) from Last 3 Months or Most Recently Relevant to Health Maintenance Results * POCT GLYCOSYLATED HEMOGLOBIN (09/29/2024 10:16 AM PODIATRIC MEDICINE DOCTOR) HGB-A1C 5.3 4 - 6 % Blood 09/29/2024 10:1 6 AM PODIATRIC MEDICINE DOCTOR Rajwinder Prescott MD POINT OF CARE TESTING (MANUAL) F inal Result * (ABNORMAL) CMP (COMPREHENSIVE METABOLIC PANEL) (06/23/2024 9:34 AM CDT) SODIUM 141 136 - 145 mmol/L 06/23/2024 11:28 AM CDT [facility] POTASSIUM 4.3 3.5 - 5.1 mmol/L 06/23/2024 11:28 AM CDT [facility] CHLORIDE 106 98 - 107 mmol/L 06/23/2024 11:28 AM CDT [facility] CO2, VENOUS 29 22 - 30 mmol/L 06/23/2024 11:28 AM CDT [facility] ANION GAP 10.3 <18.0 mmol/L 06/23/2024 11:28 AM CDT [facility] GLUCOSE 153(H) 70 - 99 mg/dL 06/23/2024 11:28 AM CDT [facility] BUN 13 9 - 21 mg/dL 06/23/2024 11:28 AM CDT [facility] CREATININE, BLOOD 0.91 0.70 - 1.30 mg/dL 06/23/2024 11:28 AM CDT [facility] BUN/CREATININE RATIO 14 12 - 20 ratio 06/23/2024 11:28 AM CDT [facility] TOTAL PROTEIN 6.6 6.3 - 8.2 g/dL 06/23/2024 11:28 AM CDT [facility] ALBUMIN 3.8 3.5 - 5.0 g/dL 06/23/2024 11:28 AM CDT [facility] A/G RATIO 1.4 1.0 - 2.2 06/23/2024 11:28 AM CDT [facility] CALCIUM 9.0 8.7 - 10.5 mg/dL 06/23/2024 11:28 AM CDT [facility] T BILI 0.8 0.2 - 1.2 mg/dL 06/23/2024 11:28 AM CDT [facility] SGOT (AST) 15 5 - 34 U/L 06/23/2024 11:28 AM CDT [facility] SGPT (ALT) 18 0 - 55 U/L 06/23/2024 11:28 AM CDT [facility] ALKALINE PHOSPHATASE 65 40 - 150 U/L 06/23/2024 11:28 AM T [facility] IS THE PATIENT REQUIRED TO BE FASTING? No 06/23/2024 11:28 AM CDT [facility] GFR, ESTIMATED >60 >=60 06/23/2024 11:28 AM CDT [facility] Comment: Creatinine Clearance is the preferred criteria for selecting drug dose adjustments in renally impaired patients. The GFR is provided as additional pertinent clinical information. GFR is reported in mL/min/1.73 sq m. Calculation based on the Chronic Kidney Disease Epidemiology Collaboration (CKD- EPI) equation refit without adjustment for race. GFR, EST. >60 >=60 024 11:28 AM CDT [facility] GFR, EST. NONAFRICAN >60 >=60 06/23/2024 11:28 AM CDT [facility] Blood Venipuncture / Unknown 06/23/2024 9:34 AM CDT 06/23/2024 10:51 AM CDT us Rajwinder Prescott MD CHEMISTRY ORDERABLES Final Resul t [facility] [address] [place] [address] from Last 3 Months or Most Recently Relevant to Health Maintenance Insurance Care Teams Director Engineering Relationship Specialty Start Date End Date Karen Toro, PULP GRINDER AND BLENDER, INSULATION PACKER [address], [address] [address] PCP - General Advanced Practice Nurse 09/11/24 Rajwinder Prescott MD [address] [address] Consulting Physician Endocrinology 04/02/22
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
[2025-02-01 16:30] VITALS: BP 118/69
[2025-02-01] MEDS: NEOMYCIN/POLYMYXIN/BACITRACIN OINTMENT PACKET 1 PACKET TOPICAL (16:35)
== END 2025-02-01 16:42 | disposition home or self-care (01) ==
PROVIDERS: Emergency Provider Emergency Medicine; PCP Nurse Practitioner Family
DX: S51.011A Laceration without foreign body of right elbow, initial encounter (principal); E11.9 Type 2 diabetes mellitus without complications; F17.210 Nicotine dependence, cigarettes, uncomplicated; V28.09XA Other motorcycle driver injured in noncollision transport accident in nontraffic accident, initial encounter; Z23 Encounter for immunization
CPT/HCPCS: 12001; 73080; 73090; 90471; 90715; 96372; 99283; J1885; J2003